=== PATIENT | female | born 2000 | race Caucasian/White ===

== ENCOUNTER 2018-09-19 11:00 | Emergency (ER) | payer MEDICAID ==
[~2018-09-19 11:00] MED LIST: IBUP-1985 PO; METH-360 PO
== END 2018-09-19 12:30 | disposition left against medical advice (07) ==
LOC: ER 11:00
DX: Z53.21 Procedure and treatment not carried out due to patient leaving prior to being seen by health care provider (principal)

== ENCOUNTER 2018-09-19 13:37 | Emergency (ER) | payer MEDICAID ==
[~2018-09-19] VITALS: Ht 167.6 cm; Wt 91.7 kg
[2018-09-19 14:13] VITALS: BP 121/68
== END 2018-09-19 18:04 | disposition left against medical advice (07) ==
LOC: ER 13:37
DX: Z53.21 Procedure and treatment not carried out due to patient leaving prior to being seen by health care provider (principal)

== ENCOUNTER 2018-09-22 11:48 | Emergency (ER) | payer MEDICAID ==
[~2018-09-22] VITALS: Ht 167.6 cm; Wt 92.0 kg
[2018-09-22 12:47] VITALS: BP 136/69
== END 2018-09-22 14:56 | disposition home or self-care (01) ==
LOC: ER 11:48
DX: M25.512 Pain in left shoulder (principal); Z79.899 Other long term (current) drug therapy
CPT/HCPCS: 99281